=== PATIENT | female | born 1945 | race Caucasian/White ===

== ENCOUNTER → 2017-03-24 | Outpatient (CLI) | payer OTHER ==
--- NOTE | ~2017-03-24 | MY11 ---
[facility] A Service of [facility] RADIOLOGY TEXT RESULTS PATIENT: NEGRO ROSAS LOCATION: [facility] : 45 UNIT #: [id number] AGE: [address]: Sophy Sher MD SEX: F ORDER DR: [id number] [address] [address] [id number] MR#: [id number] #: [id number] NAME: NEGRO ROSAS : 1945 SEX: F STUDY DATE/TIME: 03/24/2017 11:18 UNIT: [facility] ROOM: STUDY DESCRIPTION: MY Mammogram Screening Dig Justin Attending Physician: Sophy Sher M.D. Ordering Physician: Sophy Sher M.D. Primary Care Physician: Sophy Sher M.D. MEDICAL IMAGING REPORT This report is preliminary unless electronic signature is present. EXAM Digital screening mammogram 03/24/2017, HISTORY 71-year-old woman; no risk elevation. Annual screening. COMPARISON Comparison mammograms date to 09/16/2005, with most recent comparison screening exam 02/03/2014. Followup diagnostic right breast imaging 03/03/2014, 10/13/2014. FINDINGS Digital imaging of each breast was completed, utilizing screening protocol. Review includes FDA-approved CAD device. Breast parenchyma is heterogeneously dense with subareolar duct prominence bilaterally. Small nodular parenchymal pattern in each breast appears stable with dominance again noted in the right breast. There is a small circumscribed subcentimeter nodule with intramammary node characteristics stable in the right superolateral subareolar location. I see no interval occurring mass and no suspicious microcalcifications. There is no architectural deformity. IMPRESSION Stable benign mammogram. Annual screening recommended. Patients over the age of 40 are entered into a reminder system with target due date for the next mammogram. A result letter will also be sent to the patient. BIRADS: 2 Benign finding. Dictated by... [facility] A Service [facility] RADIOLOGY TEXT RESULTS PATIENT: NEGRO ROSAS LOCATION: [facility] : 45 UNIT #: [id number] AGE: [address]: Sophy Sher MD SEX: F ORDER DR: Luis Arrington M.D. THIS IS AN ELECTRONICALLY VERIFIED REPORT Luis Arrington M.D. at 03/24/2017 2:01 PM TREVON/bebo TD: 03/24/2017 13:08 JOB #: [id number] MEDICAL IMAGING REPORT Page 1 of 1
== END | disposition home or self-care (01) ==
LOC: SMAM 10:25
DX: Z12.31 Encounter for screening mammogram for malignant neoplasm of breast (principal)
CPT/HCPCS: G0202